=== PATIENT | female | born 1975 | race Caucasian/White ===

== ENCOUNTER 2016-07-01 07:51 | Emergency (ER) | payer OTHER ==
[2016-07-01 08:44] VITALS: BP 124/80
--- NOTE | 2016-07-01 08:53 | UC ---
Respiratory Complaint HPI - HPI Summary HPI Summary: Pt states for the past 2 days she has had a cough, sore throat, fever (101.0) and left ear is bleeding. Pt has a cochlear implant in the left ear. She has tendency to get left ear infections and she usually knows that she does as she gets blood draining from that ear. she has no feeling in that ear and teherfore doesnt develop pain there with the infections. also has pain over cheeks and forehead. mild wheezing, + asthma. - History of Current Complaint Chief Complaint: UCGeneralIllness Stated Complaint: SORE THROAT,COUGH,EAR PAIN Time Seen by Provider: 07/01/16 08:14 Hx Last Menstrual Period: 12/23/15 - Allergies/Home Medications Allergies/Adverse Reactions: Allergies Allergy/AdvReac Type Severity Reaction Status Date / Time Sulfamethoxazole Allergy Hives Verified 01/24/16 07:16 w/Trimethoprim [From Bactrim] Home Medications: Home Medications Acetaminophen TAB* [Tylenol TAB*] 650 mg PO Q4H PRN 07/01/16 [History Confirmed 07/01/16] Norethin Acet & Estrad-Fe [ 1-20 mg-Mcg(24)] 1 tab PO DAILY 07/01/16 [History Confirmed 07/01/16] PMH/Surg Hx/FS Hx/Imm Hx Previously Healthy: Yes Endocrine History Of: Denies: Diabetes, Thyroid Disease Cardiovascular History Of: Reports: Hypertension Denies: Cardiac Disorders Respiratory History Of: Reports: Asthma Denies: COPD GI/ History Of: Denies: Ulcer Neurological History Of: Denies: CVA Psychological History Of: Denies: Bipolar Disorder Cancer History Of: Denies: Lung Cancer - Surgical History Surgical History: Yes Surgery Procedure, Year, and Place: mastoidectomy left. COCHLEAR IMPLANT LEFT-- 2013. . ok - Family History Known Family History: Positive: Hypertension Negative: Cardiac Disease, Diabetes - Social History Alcohol Use: None Substance Use Type: None Smoking Status (MU): Never Smoked Tobacco - Immunization History Most Recent Influenza Vaccination: no Review of Systems Constitutional: Negative Skin: Negative Eyes: Negative ENT: Nasal Discharge Respiratory: Cough - using inhaler with good relief Cardiovascular: Negative Gastrointestinal: Negative Genitourinary: Negative Motor: Negative Neurovascular: Negative Musculoskeletal: Negative Neurological: Negative Psychological: Negative All Other Systems Reviewed And Are Negative: Yes Physical Exam Triage Information Reviewed: Yes Appearance: Well-Appearing, No Pain Distress, Well-Nourished Vital Signs: Initial Vital Signs Temp 98.0 F 07/01/16 08:41 Pulse 85 07/01/16 08:41 Resp 16 07/01/16 08:41 BP 124/80 07/01/16 08:41 Pulse Ox 96 07/01/16 08:41 Vital Signs Reviewed: Yes Eye Exam: Normal ENT: Positive: Pharyngeal erythema, Nasal congestion, Other: - Left TM with erythema and distorted TM. Appears to be intact but inferior portion has bulging and erythema. no apparent blood or discharge seen. Rt TM is nml. + b/l frontal and maxillary tenderness.. Negative: Tonsillar swelling, Tonsillar exudate Dental Exam: Normal Neck exam: Normal Neck: Positive: Supple, Nontender, No Lymphadenopathy Respiratory Exam: Normal Respiratory: Positive: Lungs clear, Normal breath sounds, No respiratory distress, No accessory muscle use. Negative: Crackles, Rhonchi, Stridor, Wheezing Cardiovascular Exam: Normal Cardiovascular: Positive: RRR, No Murmur, Pulses Normal, Brisk Capillary Refill Abdominal Exam: Normal Abdomen Description: Positive: Nontender, Soft Musculoskeletal Exam: Normal Neurological Exam: Normal Psychological Exam: Normal Skin Exam: Normal UC Diagnostic Evaluation - Laboratory O2 Sat by Pulse Oximetry: 96 Respiratory Course/Dx - Differential Dx/Diagnosis Differential Diagnosis/HQI/PQRI: Asthma, Bronchitis, Sinusitis, Other - OM Provider Diagnoses: Left Acute otitis media, asthma, sinusitis Discharge - Discharge Plan Condition: Stable Disposition: HOME Prescriptions: Amoxicillin/Clavulanate TAB* [Augmentin TAB 875*] 875 mg PO BID #20 tab Patient Education Materials: Sinusitis (ED), Otitis Media (ED) Forms: *Work Release Referrals: Belle Rowe MD [Primary Care Provider] - Additional Instructions: Follow up with your ENT Dr Rdz in 4 days. Take a probiotic with your antibiotics. Make sure to use back up control as the antibiotic can interfere with the control
== END 2016-07-01 09:44 | disposition home or self-care (01) ==
LOC: UCCORT 07:51
DX: H66.92 Otitis media, unspecified, left ear (principal); J45.909 Unspecified asthma, uncomplicated; J32.9 Chronic sinusitis, unspecified; Z88.2 Allergy status to sulfonamides
CPT/HCPCS: 99212; G0463

== ENCOUNTER 2016-07-07 08:35 | Emergency (ER) | payer OTHER ==
[2016-07-07 08:52] VITALS: BP 130/70
[2016-07-07] MEDS ORDERED: predniSONE TAB* 20 MG PO ONE (09:07)
--- NOTE | 2016-07-07 09:14 | UC ---
Respiratory Complaint HPI - HPI Summary HPI Summary: URI for past 8 days. ON Augmentin for sinusitis and left OM. Now feels like her asthma is acting up. Wheezing, tight, SOB with exertion. Out of her Flovent. No fever. No productive cough. Able to eat and drink. - History of Current Complaint Chief Complaint: UCAsthma Stated Complaint: SOB, ASTHMA Time Seen by Provider: 07/07/16 09:02 Hx Obtained From: Patient Hx Last Menstrual Period: 12/23/15 Onset/Duration: Gradual Onset, Lasting Days - 10 Timing: Constant Severity Initially: Mild Severity Currently: Mild Character: Cough: Nonproductive Aggravating Factors: Exertion, Recumbent Position Alleviating Factors: Bronchodilator - but not helping a whole lot today Associated Signs And Symptoms: Positive: Dyspnea, Wheezing, URI, Nasal Congestion. Negative: Chills, Pleuritic Chest Pain, Hemoptysis, Dizziness, Calf Pain - Risk Factors Pulmonary Embolism Risk Factors: Negative Cardiac Risk Factors: Hypertension Pseudomonas Risk Factors: Chronic Lung Disease Tuberculosis Risk Factors: Negative - Allergies/Home Medications Allergies/Adverse Reactions: Allergies Allergy/AdvReac Type Severity Reaction Status Date / Time Sulfamethoxazole Allergy Hives Verified 07/07/16 08:46 w/Trimethoprim [From Bactrim] PMH/Surg Hx/FS Hx/Imm Hx Endocrine History Of: Denies: Diabetes, Thyroid Disease Cardiovascular History Of: Reports: Hypertension Denies: Cardiac Disorders Respiratory History Of: Reports: Asthma Denies: COPD GI/ History Of: Denies: Ulcer Neurological History Of: Denies: CVA Psychological History Of: Denies: Bipolar Disorder Cancer History Of: Denies: Lung Cancer - Surgical History Surgical History: Yes Surgery Procedure, Year, and Place: mastoidectomy left. COCHLEAR IMPLANT LEFT-- 2013. . ok - Family History Known Family History: Positive: Hypertension - Social History Occupation: Employed Full-time Lives: With Family Alcohol Use: None Substance Use Type: None Smoking Status (MU): Never Smoked Tobacco - Immunization History Most Recent Influenza Vaccination: 2016 Review of Systems Constitutional: Negative Skin: Negative Eyes: Negative ENT: Ear Ache - left draining, Nasal Discharge Respiratory: Shortness Of Breath, Cough Cardiovascular: Negative Gastrointestinal: Negative Genitourinary: Negative Motor: Negative Neurovascular: Negative Musculoskeletal: Negative Neurological: Negative Psychological: Negative All Other Systems Reviewed And Are Negative: Yes Physical Exam Triage Information Reviewed: Yes Appearance: Well-Appearing, No Pain Distress, Well-Nourished Vital Signs: Initial Vital Signs Temp 98.5 F 07/07/16 08:47 Pulse 90 07/07/16 08:47 Resp 20 07/07/16 08:47 BP 130/70 07/07/16 08:47 Pulse Ox 98 07/07/16 08:47 Vital Signs Reviewed: Yes Eye Exam: Normal ENT: Positive: Pharynx normal, Nasal congestion, TM dull - left TM draining clear fluid. There is a blue device in canal which pt says is her cochlear implant. Negative: Tonsillar swelling, Tonsillar exudate, Trismus, Muffled/ hoarse voice Neck exam: Normal Respiratory Exam: Normal Respiratory: Positive: Lungs clear, Normal breath sounds, No respiratory distress, No accessory muscle use Cardiovascular Exam: Normal Musculoskeletal Exam: Normal Neurological Exam: Normal Psychological Exam: Normal Skin Exam: Normal UC Diagnostic Evaluation - Laboratory O2 Sat by Pulse Oximetry: 98 Respiratory Course/Dx - Differential Dx/Diagnosis Differential Diagnosis/HQI/PQRI: Bronchitis, Lower Resp Infection, Sinusitis Provider Diagnoses: URI with bronchospasm Discharge - Discharge Plan Condition: Stable Disposition: HOME Prescriptions: Albuterol HFA INHALER* [Ventolin HFA Inhaler*] 1 - 2 puff INH Q4H PRN #1 mdi PRN Reason: Wheezing Fluticasone HFA 220 mcg(NF) [Flovent HFA 220 Mcg(NF)] 1 puff INH BID #1 mdi predniSONE TAB* [Deltasone TAB*] 40 mg PO DAILY #8 tab Patient Education Materials: Bronchospasm (ED) Forms: *Work Release Referrals: Belle Rowe MD [Primary Care Provider] -
== END 2016-07-07 09:20 | disposition home or self-care (01) ==
LOC: UCCORT 08:35
DX: J06.9 Acute upper respiratory infection, unspecified (principal); J98.01 Acute bronchospasm; Z88.2 Allergy status to sulfonamides
CPT/HCPCS: 99212; G0463; J7512

== ENCOUNTER 2016-10-17 14:14 | Emergency (ER) | payer OTHER ==
[2016-10-17 14:54] VITALS: BP 124/74
--- NOTE | 2016-10-17 15:17 | UC ---
Upper Extremity HPI - HPI Summary HPI Summary: pt presents with c/o left lateral elbow pain that began ~ 1 month ago and has worsened over the last 2-3 days. 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 Pt reports that pain will "shoot" down left forearm when doing weight bearing movements and lifting. - History of Current Complaint Chief Complaint: UCUpperExtremity Stated Complaint: LEFT ELBOW PAIN Time Seen by Provider: 10/17/16 15:08 Hx Obtained From: Patient Hx Last Menstrual Period: NONE BECAUSE OF CONTROL ?: No Onset/Duration: Gradual Onset, Lasting Weeks - 4 weeks Severity Initially: Mild Severity Currently: Moderate Location Of Pain: Is Discrete @ - left elbow, Radiates To - through left forearm Character: Dull, Aching Aggravating Factor(s): Movement, Lifting, Flexion, Extension Alleviating Factor(s): Rest Associated Signs And Symptoms: Positive: Weakness Related History: Dominant Hand Right - Allergies/Home Medications Allergies/Adverse Reactions: Allergies Allergy/AdvReac Type Severity Reaction Status Date / Time Sulfamethoxazole Allergy Hives Verified 07/07/16 08:46 w/Trimethoprim [From Bactrim] PMH/Surg Hx/FS Hx/Imm Hx Previously Healthy: Yes Endocrine History Of: Denies: Diabetes, Thyroid Disease Cardiovascular History Of: Reports: Hypertension Denies: Cardiac Disorders Respiratory History Of: Reports: Asthma Denies: COPD GI/ History Of: Denies: Ulcer Neurological History Of: Denies: CVA Psychological History Of: Denies: Bipolar Disorder Cancer History Of: Denies: Lung Cancer - Surgical History Surgical History: Yes Surgery Procedure, Year, and Place: mastoidectomy left. COCHLEAR IMPLANT LEFT-- 2013. . ok - Family History Known Family History: Positive: Hypertension - Social History Occupation: Employed Full-time Alcohol Use: None Substance Use Type: None Smoking Status (MU): Never Smoked Tobacco - Immunization History Most Recent Influenza Vaccination: 2016 Review of Systems Constitutional: Negative Skin: Negative Eyes: Negative ENT: Negative Respiratory: Negative Cardiovascular: Negative Gastrointestinal: Negative Genitourinary: Negative Motor: Weakness - left forearm Neurovascular: Negative Musculoskeletal: Myalgia - left forearm Neurological: Weakness Psychological: Negative All Other Systems Reviewed And Are Negative: Yes Physical Exam Triage Information Reviewed: Yes Appearance: Well-Appearing Vital Signs: Initial Vital Signs Temp 98.9 F 10/17/16 14:52 Pulse 86 10/17/16 14:52 Resp 14 10/17/16 14:52 BP 124/74 10/17/16 14:52 Pulse Ox 98 10/17/16 14:52 Vital Signs Reviewed: Yes ENT Exam: Normal Neck exam: Normal Respiratory Exam: Normal Cardiovascular Exam: Normal Musculoskeletal Exam: Other Musculoskeletal: Positive: Strength Limited @ - left forearm, Other: - point tenderness at lateral epicondyle Neurological Exam: Normal Psychological Exam: Normal Skin Exam: Normal Upper Extremity Course/Dx - Differential Dx/Diagnosis Differential Diagnosis/HQI/PQRI: Other - tennis elbow Provider Diagnoses: tennis elbow left forearm Discharge - Discharge Plan Condition: Stable Disposition: HOME Prescriptions: Ibuprofen TAB* [Motrin TAB* 800 MG] 800 mg PO Q8H PRN #24 tab PRN Reason: Pain predniSONE TAB* [Deltasone TAB*] 30 mg PO DAILY #12 tab Patient Education Materials: Tennis Elbow (ED) Forms: *Work Release Referrals: Nirmala Sheppard NP [Primary Care Provider] - If Needed Bear Finley MD [Medical Doctor] -
== END 2016-10-17 15:44 | disposition home or self-care (01) ==
LOC: UCCORT 14:14
DX: M77.12 Lateral epicondylitis, left elbow (principal); I10 Essential (primary) hypertension; J45.909 Unspecified asthma, uncomplicated; Z88.2 Allergy status to sulfonamides
CPT/HCPCS: 99212; G0463

== ENCOUNTER 2016-11-10 14:12 | Emergency (ER) | payer OTHER ==
[2016-11-10 14:36] VITALS: BP 134/77
--- NOTE | 2016-11-10 14:48 | UC ---
Elbow Pain - HPI Summary HPI Summary: The patient comes in today for: 1. Left elbow pain: Onset: "a few months." Palliative/provocative: Grabbing and doing things like "picking up a milk jug. " Quality: Sharp when moving, and at rest a dull ache pain. Region: Left elbow. Severity: 5/10 at rest. With movement 7/10 Time: Constant. Associated symptoms: Previous treatment: She saw Dr. Hester "a few weeks ago." Dx: tendonitis. She has been taking 800 mg 4 times a day for 1 week. She was asked to also wear a strap on her elbow, but this did not help. FEvers: None. 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 * - History of Current Complaint Chief Complaint: UCUpperExtremity Stated Complaint: LEFT ELBOW PAIN Time Seen by Provider: 11/10/16 14:39 Hx Obtained From: Patient Hx Last Menstrual Period: States she does not get menses due to BCP - Allergies/Home Medications Allergies/Adverse Reactions: Allergies Allergy/AdvReac Type Severity Reaction Status Date / Time Sulfamethoxazole Allergy Hives Verified 11/10/16 14:27 w/Trimethoprim [From Bactrim] PMH/Surg Hx/FS Hx/Imm Hx Previously Healthy: No Endocrine History Of: Reports: Dyslipidemia Denies: Diabetes, Thyroid Disease, Hyperthyroidism, Hypothyroidism Cardiovascular History Of: Reports: Hypertension Denies: Cardiac Disorders, Pacemaker/ICD, Myocardial Infarction, Congestive Heart Failure, Atrial Fibrillation, Deep Vein Thrombosis, Bleeding Disorders Respiratory History Of: Reports: Asthma Denies: COPD, Bronchitis, Pneumonia, Pulmonary Embolism GI/ History Of: Denies: Gastroesophageal Reflux, Ulcer, Gastrointestinal Bleed, Gall Bladder Disease, Kidney Stones, Diverticulitis, Renal Disease, Urosepsis Neurological History Of: Denies: TIA, CVA, Dementia, Seizures, Migraine Psychological History Of: Denies: Anxiety, Depression, Bipolar Disorder, Schizophrenia, Post Traumatic Stress Disorder Cancer History Of: Denies: Lung Cancer, Colorectal Cancer, Breast Cancer, Prostate Cancer, Cervical Cancer Other History Of: Negative For: HIV, Hepatitis B, Hepatitis C, Anticoagulant Therapy - Surgical History Surgical History: Yes Surgery Procedure, Year, and Place: mastoidectomy left. COCHLEAR IMPLANT LEFT-- 2013. . ok - Family History Known Family History: Positive: Hypertension Negative: Cardiac Disease - Social History Occupation: Employed Full-time Alcohol Use: None Substance Use Type: None Smoking Status (MU): Never Smoked Tobacco - Immunization History Most Recent Influenza Vaccination: 2016 Most Recent Tetanus Shot: UTD Most Recent Pneumonia Vaccination: N/A Review of Systems Constitutional: Negative Skin: Negative Eyes: Negative ENT: Negative Respiratory: Negative Cardiovascular: Negative Gastrointestinal: Negative Genitourinary: Negative All Other Systems Reviewed And Are Negative: Yes Physical Exam Triage Information Reviewed: Yes Appearance: Well-Appearing, No Pain Distress, Well-Nourished Vital Signs: Initial Vital Signs Temp 97.6 F 11/10/16 14:29 Pulse 101 11/10/16 14:29 Resp 18 11/10/16 14:29 BP 134/77 11/10/16 14:29 Pulse Ox 97 11/10/16 14:29 Vital Signs Reviewed: Yes Eyes: Positive: Conjunctiva Clear. Negative: Discharge ENT: Positive: Hearing grossly normal. Negative: Pharyngeal erythema, Nasal congestion, Nasal drainage, TM bulging, TM dull, TM red, Tonsillar swelling, Tonsillar exudate Dental: Negative: Gross Decay/Caries @, Dental Fracture @ Neck: Positive: Supple, Nontender, No Lymphadenopathy. Negative: Nuchal Rigidity Respiratory: Positive: Chest non-tender, Lungs clear, No respiratory distress, No accessory muscle use. Negative: Crackles, Wheezing Cardiovascular: Positive: RRR, No Murmur Abdomen Description: Positive: Nontender, No Organomegaly, Soft. Negative: Distended, Guarding Musculoskeletal: Positive: Strength Intact, No Edema, Other: - The patient has focal point tenderness to palpation of the left lateral epicondyle. Neurological: Positive: Alert, Muscle Tone Normal Psychological: Positive: Age Appropriate Behavior, Consolable Skin: Negative: rashes, breakdown Elbow Pain Course/Dx - Course Course Of Treatment: Patient was told that tennis elbow can be difficult to treat and it would be good to follow up consistently with her primary care provider or the orthopedic surgeon. But, what we can do is try another treatment. She is to stop the ibuprofen starting tomorrow and will give her a burst of prednisone. She will be off from work for three days. - Differential Dx/Diagnosis Differential Diagnosis/HQI/PQRI: Cellulitis, Dislocation, Strain Provider Diagnoses: Left lateral epicondylitis Discharge - Discharge Plan Condition: Stable Disposition: HOME Patient Education Materials: Tennis Elbow (ED) Forms: *Work Release
== END 2016-11-10 15:11 | disposition home or self-care (01) ==
LOC: UCCORT 14:12
DX: M77.12 Lateral epicondylitis, left elbow (principal); E78.5 Hyperlipidemia, unspecified; J45.909 Unspecified asthma, uncomplicated; Z90.49 Acquired absence of other specified parts of digestive tract; Z88.2 Allergy status to sulfonamides
CPT/HCPCS: 99212; G0463

== ENCOUNTER → 2017-01-13 19:31 | Emergency (ER) | payer OTHER ==
[2017-01-13 20:36] VITALS: BP 137/68
--- NOTE | 2017-01-13 20:38 | RAD ---
Indication: RIGHT heel pain and RIGHT lateral foot pain along fifth metatarsal. Increased pain with ambulation, flexion, and extension. Comparison: July 01, 2009 radiographs. Technique: AP, lateral, and oblique views RIGHT foot. Report: Negative for fracture or radiographic stigmata of stress reaction. Normal articular alignment. Minimal osteophytosis at the first metatarsal phalangeal joint without significant joint space narrowing. Small Achilles tendon insertion bone spur with only mild progression compared with the 2010 exam. Unremarkable soft tissue contours. IMPRESSION: Negative for fracture or radiographic stigmata of stress reaction.
--- NOTE | 2017-01-13 20:57 | UC ---
Lower Extremity/Ankle HPI - HPI Summary HPI Summary: RIGHT LATERAL FOOT PAIN FOR THREE DAYS, RADIATES TO HEEL. NO KNOWN TRAUMA. HISTORY OF PLANTAR FASCIITIS - History of Current Complaint Chief Complaint: UCLowerExtremity Stated Complaint: RIGHT FOOT AND HEEL PAIN Time Seen by Provider: 01/13/17 19:36 Hx Obtained From: Patient Hx Last Menstrual Period: BCP's Onset/Duration: Gradual Onset, Lasting Days, Still Present Severity Initially: Mild Severity Currently: Moderate Aggravating Factor(s): Standing, Ambulation Alleviating Factor(s): Rest, Elevation Able to Bear Weight: Yes - Risk Factors Gout Risk Factors: Negative DVT Risk Factors: Negative Septic Arthritis Risk Factor: Negative - Allergies/Home Medications Allergies/Adverse Reactions: Allergies Allergy/AdvReac Type Severity Reaction Status Date / Time Sulfamethoxazole Allergy Hives Verified 01/13/17 19:57 w/Trimethoprim [From Bactrim] Home Medications: Home Medications Bp Medication 1 tab DAILY 01/13/17 [History Confirmed 01/13/17] PMH/Surg Hx/FS Hx/Imm Hx Previously Healthy: Yes Other History Of: Negative For: HIV, Hepatitis B, Hepatitis C, Anticoagulant Therapy - Surgical History Surgical History: Yes Surgery Procedure, Year, and Place: mastoidectomy left. COCHLEAR IMPLANT LEFT-- 2013. . ok - Family History Known Family History: Positive: Hypertension Negative: Cardiac Disease - Social History Occupation: Employed Full-time Lives: With Family Alcohol Use: None Substance Use Type: None Smoking Status (MU): Never Smoked Tobacco - Immunization History Most Recent Influenza Vaccination: 2015 Most Recent Tetanus Shot: UTD Most Recent Pneumonia Vaccination: N/A Review of Systems Constitutional: Negative Skin: Negative Eyes: Negative ENT: Negative Respiratory: Negative Cardiovascular: Negative Gastrointestinal: Negative Genitourinary: Negative Motor: Negative Neurovascular: Negative Musculoskeletal: Arthralgia, Myalgia Neurological: Negative Psychological: Negative All Other Systems Reviewed And Are Negative: Yes Physical Exam Triage Information Reviewed: Yes Appearance: Well-Appearing, Well-Nourished, Pain Distress - MILD Vital Signs: Initial Vital Signs Temp 98.1 F 01/13/17 19:53 Pulse 84 01/13/17 19:53 Resp 16 01/13/17 19:53 BP 137/68 01/13/17 19:53 Pulse Ox 99 01/13/17 19:53 Vital Signs Reviewed: Yes Eye Exam: Normal ENT Exam: Normal ENT: Positive: Normal ENT inspection, Hearing grossly normal, TMs normal Dental Exam: Normal Neck exam: Normal Respiratory Exam: Normal Respiratory: Positive: Chest non-tender, Lungs clear, Normal breath sounds, No respiratory distress, No accessory muscle use Cardiovascular Exam: Normal Cardiovascular: Positive: RRR, No Murmur, Pulses Normal Abdominal Exam: Normal Musculoskeletal: Positive: Strength Intact, ROM Intact, No Edema, Other: - PAIN IN RIGHT PLANTAR ASPECT, RADIATES TO HEEL Neurological Exam: Normal Psychological Exam: Normal Skin Exam: Normal Lower Extremity Course/Dx - Differential Dx/Diagnosis Differential Diagnosis/HQI/PQRI: Fracture (Closed), Sprain, Strain Provider Diagnoses: RIGHT FOOT SPRAIN, PLANTAR FASCIITIS Discharge - Discharge Plan Condition: Stable Disposition: HOME Patient Education Materials: Plantar Fasciitis Exercises (GEN), Plantar Fasciitis (ED) Forms: *Work Release Referrals: Patrick ANDREWS,Colby Verde [Doctor of Podiatric Medicine] - Nirmala Sheppard NP [Primary Care Provider] -
== END | disposition home or self-care (01) ==
LOC: UCCORT 19:31
DX: S93.601A Unspecified sprain of right foot, initial encounter (principal); M72.2 Plantar fascial fibromatosis; X58.XXXA Exposure to other specified factors, initial encounter; Y93.9 Activity, unspecified; Y92.9 Unspecified place or not applicable; Z88.2 Allergy status to sulfonamides
CPT/HCPCS: 99213; G0463

== ENCOUNTER 2017-02-25 09:29 | Emergency (ER) | payer OTHER ==
[2017-02-25 09:40] VITALS: BP 128/85
--- NOTE | 2017-02-25 10:28 | UC ---
Respiratory Complaint HPI - HPI Summary HPI Summary: Pt presents with c/o cough, wheezing, sore throat left ear pain, and fever X 4 days. Pt has history of cochlear implant and asthma - History of Current Complaint Chief Complaint: UCRespiratory Stated Complaint: SORE THROAT COUGH FEVER CONGESTION Time Seen by Provider: 02/25/17 10:12 Hx Obtained From: Patient Hx Last Menstrual Period: unknown, on BCP ?: No Onset/Duration: Gradual Onset, Lasting Days, Worse Since - onset Timing: Constant Severity Initially: Mild Severity Currently: Mild Character: Cough: Nonproductive Aggravating Factors: Deep Breaths, Recumbent Position Alleviating Factors: Nothing Associated Signs And Symptoms: Positive: Wheezing, Nasal Congestion - Risk Factors Pulmonary Embolism Risk Factors: Oral Contraceptives Cardiac Risk Factors: Negative Pseudomonas Risk Factors: Chronic Lung Disease - asthma - Allergies/Home Medications Allergies/Adverse Reactions: Allergies Allergy/AdvReac Type Severity Reaction Status Date / Time Sulfamethoxazole Allergy Hives Verified 02/25/17 09:40 w/Trimethoprim [From Bactrim] PMH/Surg Hx/FS Hx/Imm Hx Previously Healthy: Yes Respiratory History: Asthma Other History Of: Negative For: HIV, Hepatitis B, Hepatitis C, Anticoagulant Therapy - Surgical History Surgical History: Yes Surgery Procedure, Year, and Place: mastoidectomy left. COCHLEAR IMPLANT LEFT-- 2013. . ok - Family History Known Family History: Positive: Hypertension Negative: Cardiac Disease - Social History Occupation: Employed Full-time Lives: With Family Alcohol Use: None Substance Use Type: None Smoking Status (MU): Never Smoked Tobacco Have You Smoked in the Last Year: No - Immunization History Most Recent Influenza Vaccination: no Most Recent Tetanus Shot: UTD Most Recent Pneumonia Vaccination: N/A Review of Systems Constitutional: Fever, Fatigue Skin: Negative Eyes: Negative ENT: Sore Throat Respiratory: Shortness Of Breath, Cough Cardiovascular: Negative Gastrointestinal: Negative Genitourinary: Negative Motor: Negative Neurovascular: Negative Musculoskeletal: Negative Neurological: Negative Psychological: Negative Is Patient Immunocompromised?: No All Other Systems Reviewed And Are Negative: Yes Physical Exam Triage Information Reviewed: Yes Appearance: Ill-Appearing Vital Signs: Initial Vital Signs Temp 99 F 02/25/17 09:36 Pulse 71 02/25/17 09:36 Resp 15 02/25/17 09:36 BP 128/85 02/25/17 09:36 Pulse Ox 97 02/25/17 09:36 Vital Signs Reviewed: Yes Eye Exam: Normal ENT: Positive: TM bulging - left, TM red - left, purulent discharge around implant, Other: - cochlear implant appreciated in left ear. Dental Exam: Normal Neck exam: Normal Neck: Positive: Supple Respiratory Exam: Other Respiratory: Positive: Decreased breath sounds - bilateral bases Cardiovascular Exam: Normal Musculoskeletal Exam: Normal Neurological Exam: Normal Psychological Exam: Normal Skin Exam: Normal UC Diagnostic Evaluation - Laboratory O2 Sat by Pulse Oximetry: 97 Respiratory Course/Dx - Differential Dx/Diagnosis Differential Diagnosis/HQI/PQRI: Bronchitis, Other - om left ear Provider Diagnoses: OM left ear. Bronchitis Discharge - Discharge Plan Condition: Stable Disposition: HOME Prescriptions: Amoxicillin PO (*) [Amoxicillin 500 MG CAP*] 500 mg PO Q12H #20 cap Benzonatate CAP* [Tessalon 100 MG CAP*] 100 mg PO TID PRN #30 cap PRN Reason: Cough predniSONE TAB* [Deltasone TAB*] 20 mg PO DAILY #4 tab Patient Education Materials: Otitis Media (ED), Acute Cough (ED) Forms: *Work Release Referrals: Nirmala Sheppard NP [Primary Care Provider] - If Needed Additional Instructions: Please follow up with your PCP or return to clinic.
== END 2017-02-25 10:57 | disposition home or self-care (01) ==
LOC: UCCORT 09:29
DX: H66.92 Otitis media, unspecified, left ear (principal); J40 Bronchitis, not specified as acute or chronic; J45.909 Unspecified asthma, uncomplicated; Z96.21 Cochlear implant status
CPT/HCPCS: 99212; G0463

== ENCOUNTER 2017-03-23 07:24 | Emergency (ER) | payer OTHER ==
--- NOTE | 2017-03-23 07:55 | UC ---
Respiratory Complaint HPI - HPI Summary HPI Summary: cough congestion and malaise for 7 days. she has asthma but does not feel tight and wheezing. - History of Current Complaint Chief Complaint: UCRespiratory Stated Complaint: SORE THROAT COUGH FEVER Time Seen by Provider: 03/23/17 07:34 Hx Obtained From: Patient Hx Last Menstrual Period: long time ?: No Onset/Duration: Gradual Onset Timing: Constant Severity Initially: Mild Severity Currently: Moderate Character: Cough: Nonproductive Aggravating Factors: Deep Breaths, Recumbent Position Alleviating Factors: Nothing Associated Signs And Symptoms: Positive: URI, Nasal Congestion. Negative: Hemoptysis, Calf Pain, Calf Swelling - Allergies/Home Medications Allergies/Adverse Reactions: Allergies Allergy/AdvReac Type Severity Reaction Status Date / Time Sulfamethoxazole Allergy Hives Verified 03/23/17 07:37 w/Trimethoprim [From Bactrim] PMH/Surg Hx/FS Hx/Imm Hx Previously Healthy: No - asthma. Other History Of: Negative For: HIV, Hepatitis B, Hepatitis C, Anticoagulant Therapy - Surgical History Surgical History: Yes Surgery Procedure, Year, and Place: mastoidectomy left. COCHLEAR IMPLANT LEFT-- 2013. . ok - Family History Known Family History: Positive: Hypertension Negative: Cardiac Disease - Social History Alcohol Use: None Substance Use Type: None Smoking Status (MU): Never Smoked Tobacco Have You Smoked in the Last Year: No - Immunization History Most Recent Influenza Vaccination: no Most Recent Tetanus Shot: UTD Most Recent Pneumonia Vaccination: N/A Review of Systems ENT: Sore Throat, Sinus Congestion Respiratory: Cough All Other Systems Reviewed And Are Negative: Yes Physical Exam Triage Information Reviewed: Yes Appearance: Well-Appearing, Well-Nourished, Obese Vital Signs: Initial Vital Signs Temp 97.9 F 03/23/17 07:30 Pulse 87 03/23/17 07:30 Resp 20 03/23/17 07:30 Pulse Ox 99 03/23/17 07:30 Vital Signs Reviewed: Yes Eyes: Positive: Conjunctiva Clear. Negative: Conjunctiva Inflamed ENT: Positive: Pharyngeal erythema, Nasal congestion, TMs normal. Negative: Tonsillar swelling, Tonsillar exudate, Trismus, Muffled/hoarse voice Neck exam: Normal Neck: Positive: Supple, Nontender, No Lymphadenopathy Respiratory Exam: Normal Respiratory: Positive: Chest non-tender, Lungs clear, Normal breath sounds, No respiratory distress, No accessory muscle use. Negative: Respiratory distress, Decreased breath sounds, Accessory muscle use, Crackles, Rhonchi, Stridor, Wheezing Cardiovascular Exam: Normal Cardiovascular: Positive: RRR, No Murmur, Pulses Normal, Brisk Capillary Refill Abdominal Exam: Normal Abdomen Description: Positive: Nontender, No Organomegaly, Soft Musculoskeletal Exam: Normal Musculoskeletal: Positive: Strength Intact, ROM Intact, No Edema Neurological Exam: Normal Neurological: Positive: Alert, Muscle Tone Normal. Negative: Fatigued Psychological Exam: Normal Skin Exam: Normal UC Diagnostic Evaluation - Laboratory O2 Sat by Pulse Oximetry: 99 Respiratory Course/Dx - Differential Dx/Diagnosis Provider Diagnoses: viral uri Discharge - Discharge Plan Condition: Good Disposition: HOME Patient Education Materials: Upper Respiratory Infection (ED) Referrals: Nirmala Sheppard NP [Primary Care Provider] - If Needed
== END 2017-03-23 08:34 | disposition home or self-care (01) ==
LOC: UCCORT 07:24
DX: J06.9 Acute upper respiratory infection, unspecified (principal)
CPT/HCPCS: 99212; G0463

== ENCOUNTER 2017-12-02 14:24 | Emergency (ER) | payer OTHER ==
[2017-12-02 15:03] VITALS: BP 128/80
--- NOTE | 2017-12-02 15:41 | RAD ---
INDICATION: Pain and swelling. COMPARISON: None TECHNIQUE: Duplex interrogation of the Lowerextremity was performed. FINDINGS: Deep veins: The common femoral, great saphenous, profunda femoris, proximal, mid, and distal deep femoral, popliteal, posterior tibial, and peroneal veins are patent. There is normal compressibility, augmentation, and phasic flow. Superficial veins: There are no findings of superficial thrombophlebitis. Popliteal fossa:There is no evidence of a popliteal cyst. Soft tissues:There are no soft tissue abnormalities. IMPRESSION: Normal examination. No evidence of deep venous thrombosis
--- NOTE | 2017-12-02 15:48 | UC ---
Lower Extremity/Ankle HPI - HPI Summary HPI Summary: Pt c/o sudden onset of left lower anterior leg pain, swelling and mild erythema X 2 days. Pt denies trauma or injury. Pt has concern for DVT. - History of Current Complaint Chief Complaint: UCLowerExtremity Stated Complaint: RT LEG - PAINFUL LUMP Time Seen by Provider: 12/02/17 15:17 Hx Obtained From: Patient Hx Last Menstrual Period: long time ?: No Onset/Duration: Sudden Onset, Lasting Hours Severity Initially: Moderate Severity Currently: Mild Pain Intensity: 7 Aggravating Factor(s): Standing, Ambulation Alleviating Factor(s): Rest, Elevation Able to Bear Weight: Yes - Risk Factors Gout Risk Factors: Negative DVT Risk Factors: Negative - Allergies/Home Medications Allergies/Adverse Reactions: Allergies Allergy/AdvReac Type Severity Reaction Status Date / Time MS Sulfamethoxazole Allergy Hives Verified 03/23/17 07:37 w/Trimethoprim [From Bactrim] Home Medications: Home Medications Phendimetrazine Tartrate 35 mg PO TID 12/02/17 [History Confirmed 12/02/17] PMH/Surg Hx/FS Hx/Imm Hx Previously Healthy: Yes Other History Of: Negative For: HIV, Hepatitis B, Hepatitis C, Anticoagulant Therapy - Surgical History Surgical History: Yes Surgery Procedure, Year, and Place: mastoidectomy left. COCHLEAR IMPLANT LEFT-- 2013. . ok - Family History Known Family History: Positive: Hypertension Negative: Cardiac Disease - Social History Occupation: Employed Full-time Lives: With Family Alcohol Use: None Substance Use Type: None Smoking Status (MU): Never Smoked Tobacco Have You Smoked in the Last Year: No - Immunization History Most Recent Influenza Vaccination: no Most Recent Tetanus Shot: UTD Most Recent Pneumonia Vaccination: N/A Review of Systems Constitutional: Negative Skin: Negative Eyes: Negative ENT: Negative Respiratory: Negative Cardiovascular: Negative Gastrointestinal: Negative Genitourinary: Negative Motor: Negative Neurovascular: Negative Musculoskeletal: Myalgia - left lower anterior leg Neurological: Negative Psychological: Negative Is Patient Immunocompromised?: No All Other Systems Reviewed And Are Negative: Yes Physical Exam Triage Information Reviewed: Yes Appearance: Well-Appearing Vital Signs: Initial Vital Signs Temp 98.1 F 12/02/17 14:59 Pulse 69 12/02/17 14:59 Resp 16 12/02/17 14:59 BP 128/80 12/02/17 14:59 Pulse Ox 100 12/02/17 14:59 Vital Signs Reviewed: Yes Eye Exam: Normal ENT Exam: Normal Neck exam: Normal Respiratory Exam: Normal Respiratory: Positive: No respiratory distress Musculoskeletal: Positive: Other: - c/o tenderness left lower anterior leg ~ 3 CM in diameter. Diagnostics - Radiology No standard instances Radiology Interpretation Completed By: Radiologist - IMPRESSION: Normal examination. No evidence of deep venous thrombosis Lower Extremity Course/Dx - Differential Dx/Diagnosis Differential Diagnosis/HQI/PQRI: Contusion, DVT, Sprain, Strain, Tendonitis Provider Diagnoses: tendonitis left lower leg. sosa 'splints" Discharge - Sign-Out/Discharge Documenting (check all that apply): Discharge/Admit/Transfer - Discharge Plan Condition: Stable Disposition: HOME Patient Education Materials: Leg Pain (ED) Referrals: Nirmala Sheppard NP [Primary Care Provider] - If Needed - Billing Disposition and Condition Condition: STABLE Disposition: Home
== END 2017-12-02 15:54 | disposition home or self-care (01) ==
LOC: UCCORT 14:24
DX: M76.9 Unspecified enthesopathy, lower limb, excluding foot (principal); S86.892A Other injury of other muscle(s) and tendon(s) at lower leg level, left leg, initial encounter; X58.XXXA Exposure to other specified factors, initial encounter; Y93.9 Activity, unspecified; Y92.9 Unspecified place or not applicable; Z88.1 Allergy status to other antibiotic agents
CPT/HCPCS: 99211; G0463

== ENCOUNTER 2017-12-04 19:40 | Emergency (ER) | payer OTHER ==
[2017-12-04 20:17] VITALS: BP 118/80
--- NOTE | 2017-12-04 20:39 | UC ---
Lower Extremity/Ankle HPI - HPI Summary HPI Summary: C/O right lower leg pain, going on 4 days. Seen Tuesday, negative doppler. Worse since Tuesday. Some swelling. Pain worse with walking, flexing ankle and walking up stairs. Denies numbness. - History of Current Complaint Chief Complaint: UCLowerExtremity Stated Complaint: RE-CK VOEGL PAIN Time Seen by Provider: 12/04/17 20:30 Hx Obtained From: Patient Hx Last Menstrual Period: unknown ?: No Onset/Duration: Sudden Onset, Lasting Days - 4, Worse Since - last 2 days Severity Initially: Mild Severity Currently: Mild Pain Intensity: 0 Aggravating Factor(s): Standing, Ambulation Alleviating Factor(s): Rest, Elevation Able to Bear Weight: Yes - Allergies/Home Medications Allergies/Adverse Reactions: Allergies Allergy/AdvReac Type Severity Reaction Status Date / Time sulfamethoxazole Allergy Hives Verified 12/04/17 20:11 [From Bactrim] trimethoprim [From Bactrim] Allergy Hives Verified 12/04/17 20:11 Home Medications: Home Medications Albuterol HFA INHALER* [Ventolin HFA Inhaler*] 1 - 2 puff INH Q4H PRN 12/04/17 [ History Confirmed 12/04/17] Simvastatin TAB(NF) [Zocor 10 MG (NF)] 10 mg PO DAILY 12/04/17 [History Confirmed 12/04/17] PMH/Surg Hx/FS Hx/Imm Hx Endocrine History: Dyslipidemia Cardiovascular History: Hypertension Respiratory History: Asthma Psychological History: Depression Other History Of: Negative For: HIV, Hepatitis B, Hepatitis C, Anticoagulant Therapy - Surgical History Surgical History: Yes Surgery Procedure, Year, and Place: mastoidectomy left. COCHLEAR IMPLANT LEFT-- 2013. . ok - Family History Known Family History: Positive: Hypertension, Diabetes Negative: Cardiac Disease - Social History Occupation: Employed Full-time Lives: With Family Alcohol Use: None Substance Use Type: None Smoking Status (MU): Never Smoked Tobacco Have You Smoked in the Last Year: No - Immunization History Most Recent Influenza Vaccination: no Most Recent Tetanus Shot: UTD Most Recent Pneumonia Vaccination: N/A Review of Systems Musculoskeletal: Arthralgia Is Patient Immunocompromised?: No All Other Systems Reviewed And Are Negative: Yes Physical Exam Triage Information Reviewed: Yes Appearance: Well-Appearing, No Pain Distress, Well-Nourished Vital Signs: Initial Vital Signs Temp 97.4 F 12/04/17 20:12 Pulse 73 12/04/17 20:12 Resp 16 12/04/17 20:12 BP 118/80 12/04/17 20:12 Pulse Ox 99 12/04/17 20:12 Vital Signs Reviewed: Yes Eyes: Positive: Conjunctiva Clear Neck exam: Normal Respiratory Exam: Normal Cardiovascular Exam: Normal Musculoskeletal: Positive: Strength Limited @ - right ankle, ROM Limited @ - right ankle., Other: - Tender over the medial distal tibia over the area of decreased sensation. Neurological: Positive: Other: - decreased sensation to pinprick over the medial distal lower leg. Lower Extremity Course/Dx - Differential Dx/Diagnosis Differential Diagnosis/HQI/PQRI: Contusion, Sprain, Strain, Tenosynovitis Provider Diagnoses: Neuritis. right lower leg pain Discharge - Sign-Out/Discharge Documenting (check all that apply): Discharge/Admit/Transfer - Discharge Plan Condition: Stable Disposition: HOME Prescriptions: Gabapentin 300 mg PO TID PRN #90 capsule PRN Reason: nerve pain in the ankle Patient Education Materials: Paresthesia (ED), Gabapentin (By mouth) Referrals: Nirmala Sheppard NP [Primary Care Provider] - Additional Instructions: The leg pain appears to be an irritated nerve. Most of the time this should resolve. - Billing Disposition and Condition Condition: STABLE Disposition: Home Images Front/Back of Body, Lg (Forest): 1 - decreased sensation.
--- NOTE | 2017-12-04 21:16 | RAD ---
HISTORY: Tender distal Tibia COMPARISONS: None VIEWS: 2, Frontal and lateral views of the right foreleg FINDINGS: BONE DENSITY: Normal. BONES: There is no displaced fracture. There is no appreciable erosion or periosteal reaction. JOINTS: There is no arthropathy. ALIGNMENT: There is no dislocation. SOFT TISSUES: Unremarkable. OTHER FINDINGS: None. IMPRESSION: NO ACUTE OSSEOUS INJURY. IF SYMPTOMS PERSIST, RECOMMEND REPEAT IMAGING.
== END 2017-12-04 21:22 | disposition home or self-care (01) ==
LOC: UCCORT 19:40
DX: M79.2 Neuralgia and neuritis, unspecified (principal); M79.661 Pain in right lower leg; Z88.1 Allergy status to other antibiotic agents; J45.909 Unspecified asthma, uncomplicated; E78.5 Hyperlipidemia, unspecified
CPT/HCPCS: 99212; G0463

== ENCOUNTER 2022-12-03 06:15 | Inpatient (IN) ==
[~2022-12-03 06:15] MED LIST: Buffered Lidocaine 1% SYRIN 1 ml INTRADERM ONE; Lactated Ringers 1000 ml BAG 1,000 ML IV SCH
[2022-12-03] MEDS ORDERED: ceFAZolin 2 GM in NS PREMIX 2 GM/100 ML BAG IVPB ONE (06:41)
[2022-12-03] MEDS ORDERED: ROPIVACAINE 5 MG/ML 30 ML BTL (0.5%) ONE ×2 (06:51→10:13)
[2022-12-03] MEDS ORDERED: Midazolam 5 mg/5 ml VIAL 1 mg/ml 5 ml VIAL (5 mg) ONE (06:53)
[2022-12-03] MEDS ORDERED: fentaNYL 100 mcg/2 ml 50 MCG/ML VIAL ONE (06:53)
[2022-12-03] MEDS ORDERED: Dexamethasone IV 4 MG/ML VIAL 1 ml VIAL ONE ×2 (06:56→08:50)
[2022-12-03] MEDS ORDERED: Ondansetron 4 mg VIAL 2 MG/ML 2 ml VIAL ONE (06:56)
[2022-12-03] MEDS ORDERED: Sterile Water for Inj 10 ML ONE (06:56)
[2022-12-03] MEDS ORDERED: Acetaminophen IV 1 GM/100ML 1,000 MG/100 ML BAG IV ONE (06:57)
[2022-12-03] MEDS ORDERED: Sevoflurane BOTTLE ONE (06:57)
[2022-12-03] MEDS ORDERED: Phenylephrine IV 10 MG/ML 1 ml VIAL ONE (06:57)
[2022-12-03] MEDS ORDERED: Phenylephrine 40 mcg/mL 10mL (400mcg) SYRINGE ONE (06:57)
[2022-12-03 06:59] LABS: Rapid COVID-19 Molecular Undetected (Undetected)
[2022-12-03] MEDS ORDERED: Bupivacaine 0.5% PF 10 ML SDV VIAL INJ ONE (07:04)
[2022-12-03] MEDS ORDERED: Propofol 10 mg/ml 100 ML BTL 1,000 MG/100 ML BTL ONE (07:20)
[2022-12-03] MEDS ORDERED: Rocuronium 50 mg VIAL 10 mg/ml 5 ml VIAL (50 mg) ONE ×2 (08:50→09:06)
[2022-12-03] MEDS ORDERED: Naloxone 0.4 mg VIAL 0.4 mg/ml 1 ml VIAL IV PRN (08:55)
[2022-12-03] MEDS ORDERED: fentaNYL 100 mcg/2 ml 50 MCG/ML VIAL IV PRN (08:55)
[2022-12-03] MEDS ORDERED: Ondansetron 4 mg VIAL 2 MG/ML 2 ml VIAL IV PRN ×2 (08:55→11:26)
[2022-12-03] MEDS ORDERED: HYDROmorphone 0.5 MG/0.5 ML SYRINGE ONE ×3 (09:02→11:09)
[2022-12-03] MEDS ORDERED: Ketamine HCL 50 mg/ml 10 ml VIAL (500 MG) ONE (09:18)
[2022-12-03] MEDS ORDERED: Glycopyrrolate IV 0.2 MG/ML 1 ML VIAL ONE (09:20)
[2022-12-03] MEDS ORDERED: Ondansetron ODT 4 mg TAB 4 MG TAB PO PRN (11:26)
[2022-12-03] MEDS ORDERED: Lactulose 30 ml UDC PO PRN (11:26)
[2022-12-03] MEDS ORDERED: Magnesium Hydroxide LIQ 30 ML UDC PO PRN (11:26)
[2022-12-03] MEDS ORDERED: Morphine 2 MG/ML SYRINGE IV PRN (11:26)
[2022-12-03] MEDS ORDERED: HYDROmorphone 1 MG/1 ML SYRINGE ONE (12:08)
[2022-12-03] MEDS: HYDROmorphone 1 MG/1 ML SYRINGE IV PRN ×2 (12:09→12:22)
[2022-12-03] MEDS: Lactated Ringers 1000 ml BAG 1,000 ML IV SCH ×2 (13:22→23:38)
[2022-12-03] MEDS ORDERED: Albuterol HFA INHALER 8 gm MDI INH PRN (15:13)
[2022-12-03] MEDS: ceFAZolin 1 GM ADVAN 1 GM in NS 0.9% 50 ML 50 ML IVPB SCH (18:31)
[2022-12-03] MEDS ORDERED: PHENDIMETRAZINE PO SCH (21:00)
[2022-12-03] MEDS: Magnesium Hydroxide LIQ 30 ML UDC PO SCH (21:03)
[2022-12-04] MEDS: ceFAZolin 1 GM ADVAN 1 GM in NS 0.9% 50 ML 50 ML IVPB SCH ×2 (01:24→09:41)
[2022-12-04 06:24] LABS: Hematocrit 32.4 % (35-45); Mean Platelet Volume 7.8 fL (7.5-11.2); Platelet Count 281 10^3/uL (150-450)
[2022-12-04 06:39] LABS: Calcium 8.2 mg/dL (8.6-10.3); Creatinine, Serum 0.76 mg/dL (0.51-0.95); Potassium 3.9 mmol/L (3.5-5.0); eGFR CKD-EPI 97.8 (>60)
[2022-12-04] MEDS: Magnesium Hydroxide LIQ 30 ML UDC PO SCH (07:39)
[2022-12-04] MEDS ORDERED: [UNRECOGNIZED DRUG - OTHER] PO SCH (09:00)
[2022-12-04] MEDS ORDERED: Vitamin THERAPEUTIC TAB PO SCH (09:00)
[2022-12-04 10:16] VITALS: BP 106/72
== END 2022-12-04 13:15 | disposition home or self-care (01) | DRG 301 ==
LOC: AA 06:15 → SSU 11:26
PROVIDERS: ADMIT Orthopaedic Surgery Adult Reconstructive Orthopaedic Surgery; ATTEND Orthopaedic Surgery Adult Reconstructive Orthopaedic Surgery